=== PATIENT | male | born 1955 | race Caucasian/White ===

== ENCOUNTER 2020-10-23 07:49 | Day surgery (SDC) | payer MEDICARE, BC ==
[~2020-10-23] VITALS: Ht 185.4 cm; Wt 91.3 kg
[2020-10-23] MEDS ORDERED: AMLO5 PO (08:11)
[2020-10-23] MEDS ORDERED: Diovan320 MG (08:11)
== END 2020-10-23 09:50 | disposition home or self-care (01) ==
LOC: ORSCSDS 07:49
PROVIDERS: Internal Medicine Gastroenterology
PROC: 0DB58ZX Excision of Esophagus, Via Natural or Artificial Opening Endoscopic, Diagnostic (ICD-10-PCS; principal; 2020-10-23 09:00)
DX: K22.70 Barrett's esophagus without dysplasia (principal); K44.9 Diaphragmatic hernia without obstruction or gangrene; I10 Essential (primary) hypertension; Z79.899 Other long term (current) drug therapy
CPT/HCPCS: 88305; J2704; J7120

== ENCOUNTER 2023-10-17 07:37 | Day surgery (SDC) | payer MEDICARE ==
[~2023-10-17] VITALS: Ht 185.4 cm; Wt 67.5 kg
[2023-10-17] VITALS (17 sets, daily range): BP systolic 116–154; BP diastolic 72–95
[~2023-10-17 07:37] MED LIST: AMLO5 PO; ASCORBIC ACID500 MG; Diovan320 MG; LANS15EC; LOSARTAN-HCTZ1 EACH; Lactated Ringer's 1,000 ML IV SCH; OMEP20ER; VITAMIN B12500 MCG; ZINC15
--- NOTE | 2023-10-17 08:11 | NUR ---
Ambulatory in Day Surgery Patient confirms NPO status and agrees with scheduled surgery. Patient States Post-Procedure ride home has been arranged. Pre-Op teaching done. Pt verbalizes understanding. History, Chart, Medications and Allergies reviewed before start of procedure.
[2023-10-17] MEDS ORDERED: propofoL 40 ML IV ONE (08:24)
--- NOTE | 2023-10-17 08:31 | NUR ---
10/17/23 0831 Shaun Cardoza HISTORY, CHART, MEDICATIONS AND ALLERGIES REVIEWED BEFORE START OF PROCEDURE. PATIENT CONFIRMS NPO STATUS AND AGREES WITH SCHEDULED PROCEDURE. 3-LEAD EKG REVIEWED WITH PHYSICIAN PRIOR TO START OF PROCEDURE. MONITOR INTACT WITH CONTINUOUS PULSE OXIMETRY,CAPNOGRAPHY, 3-LEAD EKG, INTERMITTENT BP. SUPPLEMENTAL O2 TO BE TITRATED THROUGHOUT PROCEDURE TO MAINTAIN O2 SATURATION ABOVE 90%. PATIENT DETERMINED TO BE ASA APPROPRIATE FOR PROPOFOL SEDATION PRIOR TO START OF PROCEDURE BY DR. DAVIS.
--- NOTE | 2023-10-17 09:28 | NUR ---
PT HAS SOME SWELLING NOTED ABOVE ORIGINAL IV START WHICH IS TENDER TO TOUCH. PT HAS A COMPRESSION DRESSING TO SITE. DISCUSSED WITH PATIENT TO WATCH FOR SIGNS AND SYMPTOMS OF INFECTION. PT VERBALIZED UNDERSTANDING. 2ND IV DC'D INTACT. REVIEWED DISCHARGE INSTRUCTIONS. PT HOME WITH . OUT OF DEPARTMENT VIA WHEELCHAIR. PT WAS ABLE TO TOLERATE 2 CUPS OF CRANBERRY JUICE PRIOR TO DISCHARGE.
== END 2023-10-17 23:25 | disposition home or self-care (01) ==
LOC: ORSCMMR 07:37
PROVIDERS: Internal Medicine Gastroenterology
PROC: 0DBP8ZX Excision of Rectum, Via Natural or Artificial Opening Endoscopic, Diagnostic (ICD-10-PCS; principal; 2023-10-17 08:30)
DX: Z12.11 Encounter for screening for malignant neoplasm of colon (principal); K62.1 Rectal polyp; K57.30 Diverticulosis of large intestine without perforation or abscess without bleeding; K64.8 Other hemorrhoids; K22.70 Barrett's esophagus without dysplasia; I10 Essential (primary) hypertension; Z79.899 Other long term (current) drug therapy
CPT/HCPCS: 88305; J2704; J7120

== ENCOUNTER → 2025-01-24 | Outpatient (CLI) | payer MEDICARE ==
[~2025-01-24] MED LIST changes: +CEPH500 PO; +DRAMAMINE25 M1 PO; -Lactated Ringer's 1,000 ML IV SCH
[2025-01-24 08:59] LABS: BASOPHILS ABSOLUTE AUTO 0.08 K/mm3 (0.00-0.23); BASOPHILS PERCENT AUTO 2 % (0-2); EOSINOPHILS ABSOLUTE AUTO 0.20 K/mm3 (0.00-0.68); EOSINOPHILS PERCENT AUTO 4 % (0-6); Hematocrit 39.3 % (37.0-53.0); Hemoglobin 13.9 g/dL (13.5-17.5); IMMATURE GRAN ABSOLUTE AUTO 0.02 K/mm3 (0.00-0.10); IMMATURE GRAN PERCENT AUTO 0 % (0-1); LYMPHOCYTES ABSOLUTE AUTO 0.96 K/mm3 (0.84-5.20); LYMPHOCYTES PERCENT AUTO 20 % (21-46); MONOCYTES ABSOLUTE AUTO 0.35 K/mm3 (0.16-1.47); MONOCYTES PERCENT AUTO 7 % (4-13); Mean Corpuscular HGB Conc 35.4 g/dL (31.5-36.5); Mean Corpuscular Volume 93 fL (80-100); NEUTROPHILS ABSOLUTE AUTO 3.31 K/mm3 (1.96-9.15); NEUTROPHILS PERCENT AUTO 67 % (41-73); NRBC ABSOLUTE 0.00 K/mm3 (0.00-0.02); NRBC Auto 0.0 /100 WBC (0.0-0.2); Platelet Count 155 K/mm3 (150-400); RDW Coefficient Variation 13.3 % (11.7-14.2); RDW Standard Deviation 45.0 fL (35.1-46.3)
[2025-01-24 09:11] LABS: Alanine Aminotransfer (ALT/SGP 23.0 U/L (12-78); Albumin, Blood 3.7 g/dL (3.4-5.0); Albumin/Globulin Ratio 1.1 (0.8-1.8); Anion Gap 12.0 mmol/L (3-11); Aspartate Aminotrans (AST/SGOT 21.0 U/L (12-37); Bilirubin, Total 0.6 mg/dL (0.1-1.0); Blood Urea Nitrogen 12.0 mg/dL (8-24); CO2, Blood 30.0 mmol/L (21-32); Calcium, Blood 8.7 mg/dL (8.5-10.1); Chloride, Blood 107.0 mmol/L (98-108); Creatinine, Blood 0.84 mg/dL (0.60-1.20); Globulin, Blood 3.5 g/dL (2.2-4.0); Glucose, Blood 115.0 mg/dL (70-99); Potassium, Blood 3.6 mmol/L (3.5-5.5); Sodium, Blood 145.0 mmol/L (136-145); Total Protein, Blood 7.2 g/dL (6.4-8.2)
[2025-01-24 09:18] LABS: Source, Urine Clean Catch
[2025-01-24 09:49] LABS: White Blood Cells, Urine TNTC /hpf (0-5)
== END ==
LOC: LAB 08:50 → LAB SHORT 08:50
DX: R42 Dizziness and giddiness (principal); R82.81 Pyuria
CPT/HCPCS: 80053; 81015; 84484; 85025; 87077; 87086; 87186